=== PATIENT | male | born 1995 | race Native Hawaiian/Other Pacific Islander ===

== ENCOUNTER 2021-12-31 23:47 | Emergency (ER) | payer OTHER ==
[~2021-12-31] VITALS: Ht 175.3 cm; Wt 82.1 kg
[2022-01-01 01:19] LABS: PLATELET COUNT 271 K/uL (142-355)
[2022-01-01 01:42] LABS: POTASSIUM 3.2 mmol/L (3.6-5.2)
[2022-01-01 02:46] VITALS: BP 105/56; TEMP 98.5
== END 2022-01-01 02:46 | disposition home or self-care (01) ==
LOC: ED 23:47
PROVIDERS: Emergency Medicine
DX: I80.3 Phlebitis and thrombophlebitis of lower extremities, unspecified (principal); L03.116 Cellulitis of left lower limb; E87.6 Hypokalemia
CPT/HCPCS: 36415; 80048; 83605; 85027; 87040; 96360; 96365; 96375; 99284; J1885; J2175; J2405